=== PATIENT | male | born 1935 | race Caucasian/White ===

== ENCOUNTER → 2017-02-12 | Outpatient (CLI) | payer MEDICARE, OTHER ==
[~2017-02-12] MED LIST: ALTACE 2.5MG T2.5 MG PO; ASPIRIN 81M81 MG/TA2 PO; CALCIUM/MAGNESI1 T13 PO; CELEXA 20MG20 MG/TAB PO; CRESTOR 10MG10 MG PO; CRESTOR5 MG PO; DITROPAN 5MG TAB5 MG PO; EFFIENT10 MG PO; LUPRON DEPOT11.25 M3 IM; LUTEIN6 MG PO; MULTIPLE VITAMI1 CAP PO; NEURONTIN300 MG/CAP PO; NITROSTAT0.4 MG/TAB SL; SINGULAIR 110 MG/TAB PO; SYNTHROID 0.0.025 MG PO; THE MEDICINE S200 M2 PO; TIROSINT125 MC1 PO; TOPROL XL 25MG25 MG PO; TRIAMCINOLONE A15 GM TP; VITAMIN B COMPL1 SGL PO; VITAMIN D31000 I1 PO; ZYRTEC-D 5 MG-11 TER PO
== END ==
LOC: COL.RAD 08:36
DX: I71.4 Abdominal aortic aneurysm, without rupture (principal); I70.0 Atherosclerosis of aorta; K76.9 Liver disease, unspecified; K40.90 Unilateral inguinal hernia, without obstruction or gangrene, not specified as recurrent
CPT/HCPCS: Q9967

== ENCOUNTER 2017-04-18 06:04 | Day surgery (SDC) | payer MEDICARE, OTHER ==
[2017-04-18] VITALS (10 sets, daily range): BP systolic 126–167; BP diastolic 64–80; PULSE 56–70; TEMP 97.2–98.7
[~2017-04-18] VITALS: Ht 172.7 cm; Wt 96.8 kg
[~2017-04-18 06:04] MED LIST changes: -ALTACE 2.5MG T2.5 MG PO; -CALCIUM/MAGNESI1 T13 PO; -CELEXA 20MG20 MG/TAB PO; -CRESTOR5 MG PO; -DITROPAN 5MG TAB5 MG PO; -LUPRON DEPOT11.25 M3 IM; -LUTEIN6 MG PO; -MULTIPLE VITAMI1 CAP PO; -NEURONTIN300 MG/CAP PO; -NITROSTAT0.4 MG/TAB SL; -SINGULAIR 110 MG/TAB PO; -THE MEDICINE S200 M2 PO; -TIROSINT125 MC1 PO; -TOPROL XL 25MG25 MG PO; -TRIAMCINOLONE A15 GM TP; -VITAMIN B COMPL1 SGL PO; -VITAMIN D31000 I1 PO; -ZYRTEC-D 5 MG-11 TER PO
[2017-04-18] MEDS ORDERED: ASPIRIN 81M81 MG/TA2 PO (07:01)
[2017-04-18] MEDS ORDERED: VITAMIN B COMPL1 SGL PO (07:02)
[2017-04-18] MEDS ORDERED: CALCIUM/MAGNESI1 T13 PO (07:03)
[2017-04-18] MEDS ORDERED: ZYRTEC-D 5 MG-11 TER PO (07:05)
[2017-04-18] MEDS ORDERED: VITAMIN D31000 I1 PO (07:06)
[2017-04-18] MEDS ORDERED: CELEXA 20MG20 MG/TAB PO (07:06)
[2017-04-18] MEDS ORDERED: THE MEDICINE S200 M2 PO (07:15)
[2017-04-18] MEDS ORDERED: CRESTOR5 MG PO (07:16)
[2017-04-18] MEDS ORDERED: NEURONTIN300 MG/CAP PO (07:17)
[2017-04-18] MEDS ORDERED: LUPRON DEPOT11.25 M3 IM (07:18)
[2017-04-18] MEDS ORDERED: TIROSINT125 MC1 PO (07:20)
[2017-04-18] MEDS ORDERED: LUTEIN6 MG PO (07:21)
[2017-04-18] MEDS ORDERED: TOPROL XL 25MG25 MG PO (07:22)
[2017-04-18] MEDS ORDERED: SINGULAIR 110 MG/TAB PO (07:23)
[2017-04-18] MEDS ORDERED: NITROSTAT0.4 MG/TAB SL (07:24)
[2017-04-18] MEDS ORDERED: MULTIPLE VITAMI1 CAP PO (07:24)
[2017-04-18] MEDS ORDERED: DITROPAN 5MG TAB5 MG PO (07:25)
[2017-04-18] MEDS ORDERED: EFFIENT10 MG PO (07:26)
[2017-04-18] MEDS ORDERED: ALTACE 2.5MG T2.5 MG PO (07:27)
[2017-04-18] MEDS ORDERED: TRIAMCINOLONE A15 GM TP (07:29)
[2017-04-18] MEDS ORDERED: NORCO 325 MG-51 TAB PO (10:34)
== END 2017-04-18 16:00 | disposition home or self-care (01) ==
LOC: SDCO 06:04
DX: K40.20 Bilateral inguinal hernia, without obstruction or gangrene, not specified as recurrent (principal); I25.10 Atherosclerotic heart disease of native coronary artery without angina pectoris; F32.9 Major depressive disorder, single episode, unspecified; E78.5 Hyperlipidemia, unspecified; I71.4 Abdominal aortic aneurysm, without rupture; E03.9 Hypothyroidism, unspecified; M17.9 Osteoarthritis of knee, unspecified; I73.9 Peripheral vascular disease, unspecified; C61 Malignant neoplasm of prostate; I10 Essential (primary) hypertension; I87.2 Venous insufficiency (chronic) (peripheral); J44.9 Chronic obstructive pulmonary disease, unspecified; Z95.5 Presence of coronary angioplasty implant and graft; Z83.3 Family history of diabetes mellitus
CPT/HCPCS: A4315; C1781; J0330; J0690; J1100; J1170; J1885; J2250; J2405; J2704; J2710; J7120

== ENCOUNTER 2017-10-30 02:17 | Emergency (ER) | payer MEDICARE, OTHER ==
[~2017-10-30] VITALS: Ht 172.7 cm; Wt 88.6 kg
[~2017-10-30 02:17] MED LIST changes: +ALTACE 2.5MG T2.5 MG PO; +CALCIUM/MAGNESI1 T13 PO; +CELEXA 20MG20 MG/TAB PO; +CRESTOR5 MG PO; +DITROPAN 5MG TAB5 MG PO; +LUPRON DEPOT11.25 M3 IM; +LUTEIN6 MG PO; +MULTIPLE VITAMI1 CAP PO; +NEURONTIN300 MG/CAP PO; +NITROSTAT0.4 MG/TAB SL; +NORCO 325 MG-51 TAB PO; +SINGULAIR 110 MG/TAB PO; +THE MEDICINE S200 M2 PO; +TIROSINT125 MC1 PO; +TOPROL XL 25MG25 MG PO; +TRIAMCINOLONE A15 GM TP; +VITAMIN B COMPL1 SGL PO; +VITAMIN D31000 I1 PO; +ZYRTEC-D 5 MG-11 TER PO
[2017-10-30 02:35] VITALS: BP 136/86; PULSE 74; TEMP 98
== END 2017-10-30 04:43 | disposition home or self-care (01) ==
LOC: COL.ER 02:17
DX: S01.81XA Laceration without foreign body of other part of head, initial encounter (principal); I10 Essential (primary) hypertension; E78.5 Hyperlipidemia, unspecified; E03.9 Hypothyroidism, unspecified; I25.10 Atherosclerotic heart disease of native coronary artery without angina pectoris; Z79.82 Long term (current) use of aspirin; Z79.52 Long term (current) use of systemic steroids; W01.0XXA Fall on same level from slipping, tripping and stumbling without subsequent striking against object, initial encounter; Y92.009 Unspecified place in unspecified non-institutional (private) residence as the place of occurrence of the external cause

== ENCOUNTER → 2018-02-27 | Outpatient (CLI) | payer MEDICARE, OTHER | LOC: COL.RAD 14:30 | DX: I71.4 Abdominal aortic aneurysm, without rupture (principal); I77.1 Stricture of artery; I70.0 Atherosclerosis of aorta; I72.3 Aneurysm of iliac artery; K57.30 Diverticulosis of large intestine without perforation or abscess without bleeding; M41.86 Other forms of scoliosis, lumbar region; M46.86 Other specified inflammatory spondylopathies, lumbar region; M51.36 Other intervertebral disc degeneration, lumbar region | CPT/HCPCS: Q9967 ==

== ENCOUNTER → 2021-03-20 | Outpatient (CLI) | payer MEDICARE, OTHER | LOC: ZLAB.STJ 17:27 | DX: L89.894 Pressure ulcer of other site, stage 4 (principal) ==

== ENCOUNTER 2021-04-19 10:56 | Emergency (ER) | payer MEDICARE, OTHER ==
[~2021-04-19] VITALS: Ht 177.8 cm; Wt 63.6 kg
[2021-04-19 11:32] VITALS: TEMP 98.4
[2021-04-19 12:30] VITALS: BP 113/79; PULSE 60
== END 2021-04-19 12:30 | disposition home or self-care (01) ==
LOC: COL.ER 10:56
DX: S42.211A Unspecified displaced fracture of surgical neck of right humerus, initial encounter for closed fracture (principal); I10 Essential (primary) hypertension; E78.5 Hyperlipidemia, unspecified; E03.9 Hypothyroidism, unspecified; I25.10 Atherosclerotic heart disease of native coronary artery without angina pectoris; Z79.890 Hormone replacement therapy; Z79.899 Other long term (current) drug therapy; Z79.82 Long term (current) use of aspirin; W19.XXXA Unspecified fall, initial encounter; W22.8XXA Striking against or struck by other objects, initial encounter